=== PATIENT | male | born 1980 | race Caucasian/White ===

== ENCOUNTER 2019-12-17 10:47 | Outpatient (CLI) | payer OTHER, SELFPAY ==
--- NOTE | ~2019-12-17 | XR_ITS ---
EXAMINATION: XR chest 2V DATE: 12/17/2019 11:30 INDICATION: Cough TECHNIQUE: PA and lateral views of the chest were obtained. COMPARISON: Chest radiograph dated 03/11/2018 FINDINGS: The lungs remain clear with no focal airspace opacities, pulmonary edema, pleural effusion or pneumot horax. The cardiomediastinal silhouette is normal. Likely prosthetic disc projects over the C6-C7 dis c space. IMPRESSION: 1. No acute cardiopulmonary disease. Reviewed, dictated and finalized at location A.
--- NOTE | ~2019-12-17 | XR_ITS ---
EXAMINATION: XR sinus min 3V INDICATION: Sinus pressure TECHNIQUE: Five views of the paranasal sinuses are obtained. COMPARISON: 03/11/2018 FINDINGS: The right frontal sinus is mildly hypoplastic. No sinus opacification is identified. Chroni c mild leftward deviation of the nasal septum. The facial bones appear unremarkable. The soft tissues are normal. IMPRESSION: 1. Unremarkable sinuses although sensitivity of radiographs is low. If there is high suspicion for cl inically relevant sinusitis, consider CT. Reviewed, dictated and finalized at location B. IMPRESSION: 1. Unremarkable sinuses although sensitivity of radiographs is low. If there is high suspicion for clinically relevant sinusitis, consider CT.
[2019-12-17 11:14] LABS: Basophils Absolute Auto 0.1 K/mm3 (0.0-0.1); Basophils Percent Auto 0.8 % (0.2-1.2); Eosinophils Absolute Auto 0.1 K/mm3 (0-0.3); Eosinophils Percent Auto 1.7 % (0-4.4); Hematocrit 45.3 % (42.0-52.0); Hemoglobin 14.9 g/dL (14.0-18.0); Immature Granulocyte Absolute 0.03 K/mm3 (0.00-0.031); Immature Granulocyte Percent A 0.4 % (0-0.5); Lymphocytes Absolute Auto 2.66 K/mm3 (0.9-3.2); Lymphocytes Percent Auto 34.7 % (18.3-44.2); Mean Corpuscular HGB Conc 32.9 g/dl (32-36); Mean Corpuscular Hemoglobin 27.9 pg (26-34); Mean Corpuscular Volume 84.8 fl (80-100); Monocytes Absolute Auto 0.8 K/mm3 (0.1-0.6); Monocytes Percent Auto 10.1 % (2.6-8.5); Neutrophils Percent Auto 52.3 % (45.5-73.1); Platelet Count Result 275 k/mm3 (150-375); Red Blood Count 5.34 M/mm3 (4.6-6.20); Red Cell Distribution Width 13.1 % (11.5-14.5); White Blood Count 7.7 K/mm3 (4.5-10.0)
[2019-12-17 11:21] LABS: Influenza Control Positive
== END 2019-12-17 10:48 | disposition home or self-care (01) ==
LOC: ANHLAB 10:50
PROVIDERS: PCP Internal Medicine; Visit Provider Internal Medicine
DX: R05 Cough (principal)
CPT/HCPCS: 70220; 71046; 85025; 87804

== ENCOUNTER 2020-10-09 14:00 | Outpatient (CLI) | payer OTHER, SELFPAY ==
--- NOTE | ~2020-10-09 | XR_ITS ---
EXAMINATION: XR chest 2V DATE: 10/09/2020 14:27 INDICATION: Cough. TECHNIQUE: Frontal and lateral views of the chest were obtained. COMPARISON: Chest 2 views 12/17/2019 FINDINGS: The chest demonstrates clear lungs without pneumonia, pleural effusion, or pneumothorax. Th e heart size is normal. There are changes of disc replacement in cervical spine. IMPRESSION: 1. No acute cardiopulmonary disease. Reviewed, dictated and finalized at location B. 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
== END 2020-10-09 14:01 | disposition home or self-care (01) ==
LOC: ANHIMG 14:06
PROVIDERS: PCP Internal Medicine; Visit Provider Internal Medicine
DX: R05 Cough (principal)
CPT/HCPCS: 71046

== ENCOUNTER 2021-01-18 15:15 | Outpatient (CLI) | payer OTHER, SELFPAY | END 2021-01-18 15:16 | disposition home or self-care (01) | LOC: ANHCOVIDVC 15:15 | PROVIDERS: PCP Internal Medicine | DX: Z23 Encounter for immunization (principal) | CPT/HCPCS: 0001A; 91300 ==

== ENCOUNTER 2021-02-08 15:17 | Outpatient (CLI) | payer OTHER, SELFPAY | END 2021-02-08 15:18 | disposition home or self-care (01) | LOC: ANHCOVIDVC 15:17 | PROVIDERS: PCP Internal Medicine | DX: Z23 Encounter for immunization (principal) | CPT/HCPCS: 0002A; 91300 ==

== ENCOUNTER → 2021-10-17 07:43 | Outpatient (CLI) | payer OTHER, SELFPAY ==
[2021-10-17 19:36] LABS: SARS-CoV-2 RNA PCR Negative
[2021-10-18 10:14] LABS: Influenza A QL RT-PCR Negative (Negative); Influenza B QL RT-PCR Negative (Negative)
== END ==
PROVIDERS: PCP Internal Medicine; Visit Provider Internal Medicine
DX: R05.9 Cough, unspecified (principal); R68.89 Other general symptoms and signs; Z20.822 Contact with and (suspected) exposure to COVID-19
CPT/HCPCS: 87502; C9803; U0003; U0005

== ENCOUNTER 2022-08-23 12:52 | Emergency (ER) | payer OTHER, SELFPAY ==
--- NOTE | ~2022-08-23 | XR_ITS ---
XR foot LT min 3V 08/23/2022 13:27 Indication: Left foot pain after recent fall. Swelling. Procedure: 4 views left foot Comparison: No prior studies for comparison. Findings: There is a transverse nondisplaced fracture proximal aspect of the fifth metatarsal. No oth er fractures. No significant soft tissue abnormality. No foreign bodies. Impression: 1: Transverse nondisplaced fracture proximal aspect of the left fifth metatarsal. Reviewed, dictated and finalized at location A. MAN Impression: 1: Transverse nondisplaced fracture proximal aspect of the left fifth metatarsa l.
[2022-08-23 13:04] VITALS: BP 139/69; PULSE 84; RESP 16; TEMP 36.5; O2SAT 100
--- NOTE | 2022-08-23 14:17 | ED.LOWEXIN ---
HPI - Extremity Injury (Lower) General Chief Complaint: Extremity Injury, Lower Stated Complaint: fell down left foot injury Time Seen by Provider: 08/23/22 14:00 History of Present Illness HPI Narrative: Patient is a 42-year-old male here for evaluation of left foot pain after he fell down the stairs yesterday. Patient states that he tripped on an object the stairs that caused him to fall. Since then he has reported left foot pain and swelling. Has not attempted any medication for pain but has been able to take several steps. No numbness or tingling. He has sensation throughout the foot and is able to move the toes. Related Data Home Medications Medication Instructions Recorded Confirmed bupropion HCl 300 mg 24 hr tablet, 300 mg PO QAM 11/10/19 06/26/22 extended release (Wellbutrin XL) multivitamin 1 tablet PO DAILY 06/25/22 06/26/22 Allergies Allergy/AdvReac Type Severity Reaction Status Date / Time amoxicillin Allergy Unknown Unknown Verified 08/23/22 12:53 cefaclor Allergy Unknown Unknown Verified 08/23/22 12:53 Cephalosporins Allergy Unknown Unknown Verified 08/23/22 12:53 Penicillins Allergy Unknown Unknown Verified 08/23/22 12:53 Review of Systems Review of Systems: Gen: Denies fevers or chills Eyes: Denies eye pain or visual change ENT: Denies congestion Respiratory: Denies shortness of breath or cough CV: Denies chest pain or palpitations GI: Denies abdominal pain nausea, emesis or diarrhea denies burning, urgency, frequency or hematuria Musculoskeletal: Reports left foot pain. Neuro: Denies numbness, tingling, weakness or focal weakness Skin: Denies rash Except as documented, all other systems reviewed and negative [facility] Past Medical History Medical History Abnormal finding of blood chemistry, unspecified Acute suppurative otitis media of right ear Benign essential hypertension BMI 29.0-29.9,adult BMI 32.0-32.9,adult BMI 33.0-33.9,adult BMI 35.0-35.9,adult BMI 36.0-36.9,adult Chronic sinusitis Closed fracture of right hand Cough Depression Elevated glucose Elevated LFTs Encounter for preventive health examination Encounter for routine adult health examination with abnormal findings Flu-like symptoms History of COVID-19 Hyperlipidemia Hypersomnolence Illness Loose stools Lymphadenopathy Neck pain Neoplasm of skin On long 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 care 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 therapy Right upper extremity numbness Right-sided muscle weakness URI (upper respiratory infection) Viral warts Vitamin D deficiency Family History Family History Father Family history of heart disease in male family member before age 55 Social History Social History Smoking status: Never smoker Alcohol intake: current Exam Narrative: Gen: Alert, oriented, no acute disease Eyes: EOMI, no icterus Pulm: Respirations even and unlabored, symmetric thorax expansion, no audible stridor or visible cyanosis CV: Regular rate per telemetry GI: No distension, no voluntary/involuntary guarding Neuro: AOx4, moves all extremities without apparent difficulty or weakness, follows commands CV: triphasic doppler signals to bilateral dp/pt MSK: Swelling over the dorsum of the left foot and point tenderness to the base of the fifth metatarsal. He has a small abrasion that has scabbed over to the dorsal aspect of the 5th toe with no active bleeding. Skin: No jaundice, no visible bruising, rashes, lesions or wounds on exposed skin Psych: Normal mood/affect, insight/judgement good, adequate fund of knowledge, recent/remote memory intact Course Vital Signs Vital signs: Vital Signs Temperature 97.7 F 08/23/22 13:04 Pulse Rate 84 08/23/22 13:04 Respiratory Rate 16 08/23/22 13:04 Blood Pressure 139/69 08/23/22 13:04 Pulse Oximetry 100 08/23/22 13:04 Oxygen Delivery Room Air 12
== END 2022-08-23 15:12 | disposition home or self-care (01) ==
PROVIDERS: Emergency Provider Physician Assistant; PCP Internal Medicine
DX: S92.355A Nondisplaced fracture of fifth metatarsal bone, left foot, initial encounter for closed fracture (principal); I10 Essential (primary) hypertension; E78.5 Hyperlipidemia, unspecified; J32.9 Chronic sinusitis, unspecified; E55.9 Vitamin D deficiency, unspecified; F32.A Depression, unspecified; Z85.828 Personal history of other malignant neoplasm of skin; Z86.16 Personal history of COVID-19; Z79.84 Long term (current) use of oral hypoglycemic drugs; W10.9XXA Fall (on) (from) unspecified stairs and steps, initial encounter
CPT/HCPCS: 29515; 73630; 99284; A9270

== ENCOUNTER 2023-05-12 15:05 | Outpatient (CLI) | payer OTHER, SELFPAY ==
[2023-05-12 18:09] LABS: Basophils Absolute Auto 0.1 K/mm3 (0.0-0.1); Basophils Percent Auto 0.6 % (0.2-1.2); Eosinophils Absolute Auto 0.2 K/mm3 (0-0.3); Eosinophils Percent Auto 1.6 % (0-4.4); Hemoglobin 14.8 g/dL (14.0-18.0); Immature Granulocyte Absolute 0.03 K/mm3 (0.00-0.031); Immature Granulocyte Percent A 0.3 % (0-0.5); Lymphocytes Absolute Auto 2.88 K/mm3 (0.9-3.2); Lymphocytes Percent Auto 27.1 % (18.3-44.2); Mean Corpuscular HGB Conc 32.2 g/dl (32-36); Mean Corpuscular Hemoglobin 27.9 pg (26-34); Mean Corpuscular Volume 86.6 fl (80-100); Mean Platelet Volume 10.1 fl (7.4-10.4); Monocytes Absolute Auto 0.8 K/mm3 (0.1-0.6); Monocytes Percent Auto 7.9 % (2.6-8.5); Neutrophils Absolute Auto 6.6 K/mm3 (1.3-6.7); Neutrophils Percent Auto 62.5 % (45.5-73.1); Platelet Count Result 300 k/mm3 (150-375); Red Blood Count 5.31 M/mm3 (4.6-6.20); Red Cell Distribution Width 13.2 % (11.5-14.5); White Blood Count 10.6 K/mm3 (4.5-10.0)
[2023-05-12 18:28] LABS: Alanine Aminotransferase 94 U/L (6-50); Alkaline Phosphatase 115 U/L (38-126); Anion Gap 9 mmol/L (8-16); Aspartate Amino Transferase 62 U/L (17-59); Bilirubin,Total 0.6 mg/dL (0.2-1.3); Blood Urea Nitrogen 11 mg/dL (9-20); Calcium 9.7 mg/dL (8.4-10.2); Carbon Dioxide 31 mmol/L (22-30); Chloride 100 mmol/L (98-107); Cholesterol 181 mg/dL (0-200); Estimated Glomerular Filt Rate > 60; Glucose 97 mg/dL (65-110); HDL Direct 43 mg/dL; Potassium 4.4 mmol/L (3.4-5.0); Sodium 140 mmol/L (137-145); Triglycerides 167 mg/dL (<150)
[2023-05-12 18:43] LABS: LDL Cholesterol Direct 100 mg/dL
[2023-05-16 17:00] LABS: Testosterone Free 54.3 pg/mL (35.0-155.0); Testosterone Total 396 ng/dL (250-1100)
== END 2023-05-12 15:06 | disposition home or self-care (01) ==
LOC: ANHGOSHLAB 15:06
PROVIDERS: PCP Internal Medicine; Visit Provider Clinical Nurse Specialist
DX: Z13.228 Encounter for screening for other metabolic disorders (principal); I10 Essential (primary) hypertension; E78.5 Hyperlipidemia, unspecified; R73.09 Other abnormal glucose
CPT/HCPCS: 36415; 80053; 80061; 83036; 84402; 84403; 84443; 85025

== ENCOUNTER → 2023-05-16 14:45 | Outpatient (CLI) | payer OTHER, SELFPAY ==
--- NOTE | ~2023-05-16 | US_ITS ---
US right upper quadrant INDICATION: Elevated liver enzymes PROCEDURE: Realtime right upper abdominal ultrasound. COMPARISON: 12/09/2011 FINDINGS: The pancreas is normal without focal mass or pancreatic ductal dilation. Liver echotexture is increased, consistent with fatty infiltration. There is normal directional flow in the portal ve in. The gallbladder is normal without stones, gallbladder wall thickening or pericholecystic fluid. Comm on bile duct measures 4 mm. No sonographic Hill's sign. IMPRESSION: 1: Hepatic steatosis. Reviewed, dictated and finalized at location B. IMPRESSION: 1: Hepatic steatosis.
== END ==
PROVIDERS: PCP Internal Medicine; Visit Provider Clinical Nurse Specialist
DX: R74.01 Elevation of levels of liver transaminase levels (principal); K76.0 Fatty (change of) liver, not elsewhere classified
CPT/HCPCS: 76705

== ENCOUNTER 2024-02-27 08:25 | Outpatient (CLI) | payer OTHER, SELFPAY ==
--- NOTE | ~2024-02-27 | CT_ITS ---
EXAMINATION: CT sinus wo con DATE: 02/27/2024 08:42 INDICATION: Chronic otitis media TECHNIQUE: Computed tomography (CT) of the paranasal sinuses was performed without intravenous contra st. The dose-length product was 428.01 mGy-cm. Automated exposure control and iterative reconstructio n technique were employed. COMPARISON: None FINDINGS: Small mucous retention cyst right maxillary sinus. Mild mucosal thickening of the maxillary , ethmoid and sphenoid sinusitis. There is right mastoid effusion with sclerosis of the temporal bone . There is curvature of the nasal septum with deviation to the right. Ostiomeatal units are patent. IMPRESSION: 1. Mild sinus disease. 2: Right mastoid effusion, likely chronic. Reviewed, dictated and finalized at location B.
== END 2024-02-27 08:26 ==
PROVIDERS: PCP Internal Medicine; Visit Provider Otolaryngology
DX: J32.2 Chronic ethmoidal sinusitis (principal); J32.0 Chronic maxillary sinusitis; J01.01 Acute recurrent maxillary sinusitis; H90.11 Conductive hearing loss, unilateral, right ear, with unrestricted hearing on the contralateral side; H65.491 Other chronic nonsuppurative otitis media, right ear
CPT/HCPCS: 70486

== ENCOUNTER 2024-04-16 08:23 | Outpatient (CLI) | payer OTHER, SELFPAY ==
--- NOTE | 2024-04-16 08:27 | ECG_ITS ---
Test Date: 2024-04-16 08:44:20 Measurements Intervals Herman Rate: 84 P: 49 TX: 166 QRS: 35 QRSD: 125 T: 12 QT: 386 QTc: 458 Interpretive Statements SINUS RHYTHM INTRAVENTRICULAR CONDUCTION DELAY POOR R WAVE PROGRESSION BORDERLINE T WAVE ABNORMALITY- INFERIOR LEADS BORDERLINE ECG No previous ECG available for comparison Electronically Signed On 04-16-2024 08:53:04 CDT by Henry Araiza D.O.
[2024-04-16 09:25] LABS: Anion Gap 11 mmol/L (4-12); Blood Urea Nitrogen 16 mg/dL (9-20); Calcium 9.3 mg/dL (8.4-10.2); Carbon Dioxide 27 mmol/L (22-30); Chloride 103 mmol/L (98-107); Estimated Glomerular Filt Rate > 60; Glucose 117 mg/dL (65-110); Sodium 141 mmol/L (137-145)
== END 2024-04-16 08:24 | disposition home or self-care (01) ==
PROVIDERS: Anesthesiology; PCP Internal Medicine; Visit Provider Otolaryngology
DX: Z01.810 Encounter for preprocedural cardiovascular examination (principal); Z01.812 Encounter for preprocedural laboratory examination; I10 Essential (primary) hypertension; Z79.899 Other long term (current) drug therapy; I45.9 Conduction disorder, unspecified
CPT/HCPCS: 36415; 80048; 93005

== ENCOUNTER 2024-04-20 00:01 | Day surgery (SDC) | payer OTHER, SELFPAY ==
[2024-04-14 09:34] VITALS: BMI 35.6
--- NOTE | 2024-04-14 09:53 | SUR.PREOP ---
Report to the Outpatient Waiting Room, entrance under the green pavilion located off [facility], at time 0930 on date 04/20/24. Planned Procedure Time: 1130. Time changes happen often and if your time is changed the preop area will call you the afternoon before. - You and your visitor will be asked to self-screen and do not enter if you have any COVID symptoms. - A mask is optional within the hospital at this time. Patients may have clear liquids (water, carbonated beverages, clear teas, apple juice) until 3 hours prior to surgery with a maximum of 20 ounces. - No food from midnight until time of surgery Take the following medications with a SIP of water the morning of surgery: ALPRAZOLAM, BUPROPRION DO NOT STOP ANY OF YOUR OTHER PRESCRIPTION MEDICATIONS PRIOR TO SURGERY ?EXCEPT THE FOLLOWING Medications to discontinue per physician STOP ALL VITAMINS AND SUPPLIMENTS 3 DAYS PRIOR TO PROCEDURE Date to take last dose 04/16/24 Please no make-up, nail kosovan, hairspray, perfume, deodorant, or body powder the day of surgery. No jewelry (including any body piercings) or valuables the day of surgery, leave them at home. Please take a shower or bath the night before, or the morning of, surgery with an antibacterial soap. Wear comfortable, loose fitting clothing. Children are encouraged to wear pajamas. - Jewelry must be removed prior to entering the operating room. Rings and piercings that are not removed may be cut off. - The hospital will not accept responsibility for valuables. - Please leave all valuables, including medications, at home the day of surgery. If you are going home after surgery, a licensed helper/driver must drive you home. - NO public transportation without another adult if you receive anesthesia. - We recommend that an adult stay with you for 24 hours following discharge. - We also recommend that you do not drive, make important decision, drink alcoholic beverages, or take any drugs that were not prescribed by your health care provider for at least 24 hours after your discharge time. Follow any additional instructions given to you from your surgeon. If you or anyone in your household have experienced Covid symptoms in the past week, please notify your surgeon or the nurse liaison at the phone number below for possible testing. Telephone instructions given to TAD KAY and asked if any additional questions and then verbalized understanding. Patient advised to call surgeon office or pre surgery nurse liaison [phone] if any additional questions.
--- NOTE | 2024-04-19 11:01 | PM.IMHP ---
H&P: HPI History of Present Illness Date/Time: 04/19/24 11:01 Chief Complaint: nasal obstruction nasal congestion septal deviation turbinate hypertrophy Narrative: planned procedure Review of Systems Review of Systems: All systems reviewed & are unremarkable except as noted in HPI and below [facility] Past Medical History Medical History Abnormal finding of blood chemistry, unspecified Acute suppurative otitis media of right ear Benign essential hypertension BMI 29.0-29.9,adult BMI 32.0-32.9,adult BMI 33.0-33.9,adult BMI 35.0-35.9,adult BMI 36.0-36.9,adult Chronic sinusitis Closed fracture of right hand Cough Depression Diarrhea Elevated glucose Elevated LFTs Encounter for preventive health examination Encounter for routine adult health examination with abnormal findings Flu-like symptoms Fracture of base of fifth metatarsal bone of left foot History of COVID-19 Hyperlipidemia Hypersomnolence Illness Loose stools Lymphadenopathy Neck pain Neoplasm of skin On buttermaker drug therapy Right upper extremity numbness Right-sided muscle weakness Seborrheic keratosis Skin tag URI (upper respiratory infection) Viral warts Vitamin D deficiency Surgical History Surgical History History of arthroscopy of left knee History of hand surgery History of neck surgery Family History Family History Father Family history of heart disease in male family member before age 55 Social History Social History Social History: Caffeine-occasionally Smoking status: Never smoker Alcohol intake: former Substance use: never Substance use type: does not use Lack of Transportation: No Lack of Food: Never True Current Housing: I Have Housing Concerned About Future Housing: No Difficulty Paying Gas/Electric Bills: No Currently Unemployed: No Education: Associate Degree Difficulty w/ Childcare or Family Care: No Living arrangements: with friend(s) Occupation/Education: occupation 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 Gender identity (if verbalized by the patient): Male Spiritual care concerns: No Meds Home Medications and Allergies Home Medications Medication Instructions Recorded Confirmed Type alprazolam 0.5 mg tablet 0.5 mg PO BID PRN anxiety #60 tabs 05/15/22 04/14/24 Rx multivitamin 1 tablet PO DAILY 06/25/22 04/14/24 History bupropion HCl 300 mg 24 hr tablet, 300 mg PO QAM 05/12/23 04/14/24 History extended release (Wellbutrin XL) albuterol sulfate 90 mcg/actuation 1 puff inhalation Q4H PRN 07/09/23 04/14/24 Rx aerosol inhaler shortness of breath or wheezing #8.5 grams hydrochlorothiazide 12.5 mg tablet 12.5 mg PO DAILY #90 tabs 02/24/24 04/14/24 Rx omeprazole 20 mg capsule,delayed 20 mg PO DAILY #30 caps 03/05/24 04/14/24 Rx release atorvastatin 40 mg tablet 40 mg PO DAILY #90 tabs 03/26/24 04/14/24 Rx losartan 100 mg tablet 100 mg PO DAILY #90 tabs 03/26/24 04/14/24 Rx Allergies Allergy/AdvReac Type Severity Reaction Status Date / Time amoxicillin Allergy Unknown Unknown Verified 03/05/24 14:53 cefaclor Allergy Unknown Unknown Verified 03/05/24 14:53 Cephalosporins Allergy Unknown Unknown Verified 03/05/24 14:53 Penicillins Allergy Unknown Unknown Verified 03/05/24 14:53 hydrocodone [From Vicodin] AdvReac Other Verified 04/14/24 09:37 Exam Narrative: a septal deviation turbinate hypertrophy Assessment and Plan Assessment and plan (1) Nasal congestion: Code(s): R09.81 - Nasal congestion Status: Acute Assessment and Plan: OR for endoscopic assisted septoplasty inferior turbinate reduction with outfracture. Risks were discussed bleeding infection and . Damage to surrounding structures.
[2024-04-20] VITALS (8 sets, daily range): BP systolic 113–143; BP diastolic 63–91; PULSE 96–107; RESP 10–20; TEMP 36.2–36.8; O2SAT 92–100
--- NOTE | 2024-04-20 07:13 | WPDHPUPDATE1 ---
History and Physical Update Update Date/Time: 04/20/24 07:13 History and Physical has been reviewed, including an updated exam of the patient. There are NO changes in the patient's condition. Risks, benefits, and alternatives have been discussed and questions answered. Patient agrees to proceed with procedure.
--- NOTE | 2024-04-20 10:00 | WPDANESEPPF ---
Anes - Initial Pre Proc Eval Procedure: Operation Date: 04/20/24 11:30 Proposed Procedures p Endoscopic Septoplasty - Kali Huerta MD s Bilateral Inferior Turbinate Reduction with Outfracture - Kali Huerta MD Date/Time: 04/20/24 10:00 Surgeon: Kali Huerta MD Pre Op Diagnosis: septal deviation, turbinate hypertrophy Patient Data Age: 44 Gender: M Height: 1.85 m Weight: 122.44 kg Allergies Allergy/AdvReac Type Severity Reaction Status Date / Time amoxicillin Allergy Unknown Unknown Verified 04/20/24 10:35 cefaclor Allergy Unknown Unknown Verified 04/20/24 10:35 Cephalosporins Allergy Unknown Unknown Verified 04/20/24 10:35 Penicillins Allergy Unknown Unknown Verified 04/20/24 10:35 hydrocodone [From Vicodin] AdvReac Other Verified 04/20/24 10:35 Home Medications Medication Instructions Recorded Confirmed Type alprazolam 0.5 mg tablet 0.5 mg PO BID PRN anxiety #60 tabs 05/15/22 04/14/24 Rx multivitamin 1 tablet PO DAILY 06/25/22 04/14/24 History bupropion HCl 300 mg 24 hr tablet, 300 mg PO QAM 05/12/23 04/20/24 History extended release (Wellbutrin XL) albuterol sulfate 90 mcg/actuation 1 puff inhalation Q4H PRN 07/09/23 04/14/24 Rx aerosol inhaler shortness of breath or wheezing #8.5 grams hydrochlorothiazide 12.5 mg tablet 12.5 mg PO DAILY #90 tabs 02/24/24 04/14/24 Rx omeprazole 20 mg capsule,delayed 20 mg PO DAILY #30 caps 03/05/24 04/14/24 Rx release atorvastatin 40 mg tablet 40 mg PO DAILY #90 tabs 03/26/24 04/14/24 Rx losartan 100 mg tablet 100 mg PO DAILY #90 tabs 03/26/24 04/14/24 Rx Patient hx anesthesia problems: none Family hx anesthesia problems: none Results Review: All pre-operative results and documents have been reviewed as part of the pre-operative evaluation. [facility] Past Medical History Medical History (Updated 04/20/24 @ 10:01 by Niles Waldrop DO) Abnormal finding of blood chemistry, unspecified Acute suppurative otitis media of right ear Asthma Benign essential hypertension BMI 29.0-29.9,adult BMI 32.0-32.9,adult BMI 33.0-33.9,adult BMI 35.0-35.9,adult BMI 36.0-36.9,adult Chronic sinusitis Closed fracture of right hand Cough Depression Diarrhea Elevated glucose Elevated LFTs Encounter for preventive health examination Encounter for routine adult health examination with abnormal findings Flu-like symptoms Fracture of base of fifth metatarsal bone of left foot History of COVID-19 Hyperlipidemia Hypersomnolence Hypertension Illness Loose stools Lymphadenopathy Neck pain Neoplasm of skin On fpc drug therapy Right upper extremity numbness Right-sided muscle weakness Seborrheic keratosis Skin tag URI (upper respiratory infection) Viral warts Vitamin D deficiency Surgical History Surgical History History of arthroscopy of left knee History of hand surgery History of neck surgery Family History Family History Father Family history of heart disease in male family member before age 55 Social History Social History Social History: Caffeine-occasionally Smoking status: Never smoker Alcohol intake: former Substance use: never Substance use type: does not use Lack of Transportation: No Lack of Food: Never True Current Housing: I Have Housing Concerned About Future Housing: No Difficulty Paying Gas/Electric Bills: No Currently Unemployed: No Education: Associate Degree Difficulty w/ Childcare or Family Care: No Living arrangements: with friend(s) Occupation/Education: occupation 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
[2024-04-20] MEDS: ACETAMINOPHEN 500 MG TABLET 1000 MG PO (10:15)
[2024-04-20] MEDS: LACTATED RINGERS 1,000 ML 30 ML IV CONT (10:15)
[2024-04-20] MEDS: CLINDAMYCIN 900 MG/D5W 50 ML 900 MG/50 ML PIGGYBACK 50 MG IVPB (11:10)
[2024-04-20] MEDS: LIDO 1%/EPINEPHRINE 1:100,000 20 ML VIAL 5 ML INFILTRATE (11:35)
[2024-04-20] MEDS: OXYMETAZOLINE HCL 0.05% NAS 15 ML BTL (*BKC) 1 SPRAY NASAL (11:35)
[2024-04-20] MEDS: HEMOSTATIC MATRIX (SURGIFLO with THROMBIN) KIT 1 KIT XX (12:13)
[2024-04-20] MEDS: MUPIROCIN 2% OINT 22 GM TUBE 1 APPLIC EACH NARE (12:27)
[2024-04-20] MEDS: oxyCODONE HCL (*CRX) 5 MG TAB IR PO (14:00)
--- NOTE | 2024-04-20 14:27 | W.PM.PROC2 ---
Procedure Note - Detailed Date of Procedure 04/20/24 Pre-op Diagnosis septal deviation, turbinate hypertrophy, nasal obstruction Post-op Diagnosis Same Procedure Performed endoscopic assisted septoplasty, bilateral inferior turbinate reduction with outfracture Surgeon Kali Huerta MD Anesthesia General Indications see above Findings severely deviated leftward septum large turbinates well reduced Description of Procedure patient identified consent verified preop. Patient brought operating. Time-out performed. General anesthesia induced endotracheal tube secured. Patient prepped draped position procedure confirmed 2nd time-out performed. Afrin-soaked pledgets placed for 5 minutes then removed. 0 degree endoscope utilized total 17 cc 1% lidocaine 1 100,000 parts epinephrine checked in bilateral nasal septum and inferior turbinates. Rupert incision made left-sided left nasal septal flap elevated small tears over the spur osteotome utilized to cross to the septum. Right nasal septal side nasal septal flap elevated small tears over a right-sided spur none opposing the left side. Deviated septum removed osteotome Abilio Vivas forceps Marium forceps. Septum washed out FloSeal placed. Any bleeding he turbinates stab with 15 blade anteriorly reduced in the submucosal plane using microdebrider with 2.5 mm [place] blade outfractured [place] elevator FloSeal placed here as well. Total blood loss 20 cc. [place] incision closed with 3 interrupted 5 0 fast gut sutures. Maldonado splints placed sutured into using 3-0 mattress nylon suture. I performed all dictated portions procedure no complications care the patient given Anesthesiology patient taken to PACU. Estimated Blood Loss 20 Drains No Packing No Pathology None sent Complications No immediate complications Condition Stable Disposition PACU [facility] Billing Surgery - Charge Forward: Surgery Billing
== END 2024-04-20 14:45 | disposition home or self-care (01) ==
PROVIDERS: PCP Internal Medicine; Visit Provider Otolaryngology
PROC: (CPT 30520; principal; 2024-04-20 11:30)
PROC: (CPT 30520; 2024-04-20 11:30)
DX: J34.2 Deviated nasal septum (principal); J34.3 Hypertrophy of nasal turbinates; J34.89 Other specified disorders of nose and nasal sinuses; I10 Essential (primary) hypertension; E78.5 Hyperlipidemia, unspecified; J45.909 Unspecified asthma, uncomplicated; F32.A Depression, unspecified; Z79.51 Long term (current) use of inhaled steroids; E66.9 Obesity, unspecified; Z68.37 Body mass index [BMI] 37.0-37.9, adult
CPT/HCPCS: 30520; 30140; 36415; 80048; 93005; A9270; J0330; J1100; J2250; J2405; J2704; J3010; J7120

== ENCOUNTER 2024-09-09 09:16 | Outpatient (CLI) | payer OTHER, SELFPAY ==
[2024-09-09 12:35] LABS: Basophils Absolute Auto 0.1 K/mm3 (0.0-0.1); Eosinophils Absolute Auto 0.3 K/mm3 (0-0.3); Eosinophils Percent Auto 2.5 % (0-4.4); Hematocrit 46.1 % (42.0-52.0); Hemoglobin 14.8 g/dL (14.0-18.0); Immature Granulocyte Absolute 0.08 K/mm3 (0.00-0.031); Immature Granulocyte Percent A 0.8 % (0-0.5); Lymphocytes Absolute Auto 2.66 K/mm3 (0.9-3.2); Lymphocytes Percent Auto 26.3 % (18.3-44.2); Mean Corpuscular HGB Conc 32.1 g/dl (32-36); Mean Corpuscular Hemoglobin 27.9 pg (26-34); Mean Platelet Volume 9.8 fl (7.4-10.4); Monocytes Absolute Auto 0.8 K/mm3 (0.1-0.6); Monocytes Percent Auto 7.7 % (2.6-8.5); Neutrophils Absolute Auto 6.2 K/mm3 (1.3-6.7); Neutrophils Percent Auto 61.7 % (45.5-73.1); Platelet Count Result 268 k/mm3 (150-375); Red Cell Distribution Width 13.8 % (11.5-14.5); White Blood Count 10.1 K/mm3 (4.5-10.0)
[2024-09-09 13:10] LABS: Alanine Aminotransferase 83 U/L (6-50); Albumin Level 4.5 g/dL (3.5-5.1); Alkaline Phosphatase 92 U/L (38-126); Anion Gap 6 mmol/L (4-12); Aspartate Amino Transferase 91 U/L (17-59); Bilirubin,Total 0.5 mg/dL (0.2-1.3); Blood Urea Nitrogen 17 mg/dL (9-20); Calcium 9.6 mg/dL (8.4-10.2); Carbon Dioxide 30 mmol/L (22-30); Chloride 105 mmol/L (98-107); Cholesterol 180 mg/dL (0-200); Estimated Glomerular Filt Rate > 60; Glucose 103 mg/dL (65-110); HDL Direct 38 mg/dL; Potassium 4.3 mmol/L (3.4-5.0); Sodium 141 mmol/L (137-145); Triglycerides 167 mg/dL (<150)
[2024-09-09 13:15] LABS: Iron 90 ug/dL (49-181)
[2024-09-09 13:21] LABS: LDL Cholesterol Direct 105 mg/dL
[2024-09-09 13:28] LABS: Hepatitis B Surface Antigen Negative (Negative); Percent Iron Saturation 21 % (20-50)
[2024-09-09 13:45] LABS: Hepatitis C Virus Antibody Negative (Negative)
[2024-09-09 13:52] LABS: HIV 1/2 Ab P24 Ag Result Negative (Negative)
[2024-09-09 13:56] LABS: Creatinine Urine 132.9 mg/dL
[2024-09-09 14:00] LABS: MALB Creatinine Ratio 14.4 mg/g (0-30); Microalbumin Urine Random 19.2 mg/L (0-16.7)
[2024-09-09 16:02] LABS: Hemoglobin A1C 6.3 % (<5.7)
== END 2024-09-09 09:17 | disposition home or self-care (01) ==
LOC: ANHGOSHLAB 09:17
PROVIDERS: PCP Internal Medicine; Visit Provider Clinical Nurse Specialist
DX: R74.01 Elevation of levels of liver transaminase levels (principal); R53.83 Other fatigue; I10 Essential (primary) hypertension; F41.9 Anxiety disorder, unspecified; E78.2 Mixed hyperlipidemia; E66.9 Obesity, unspecified; Z68.38 Body mass index [BMI] 38.0-38.9, adult; R74.8 Abnormal levels of other serum enzymes; R73.9 Hyperglycemia, unspecified
CPT/HCPCS: 36415; 80053; 80061; 82043; 82728; 83036; 83540; 83550; 84443; 85025; 86703; 86803; 87340; G0432

== ENCOUNTER 2024-12-10 10:51 | Outpatient (CLI) | payer OTHER, SELFPAY ==
--- NOTE | ~2024-12-10 | XR_ITS ---
Clinical Indication: Chronic cough PA and lateral views of the chest: Comparison: 10/09/2020 Findings: The lungs are clear, without evidence of focal consolidation or pleural effusion. Cardiome diastinal silhouette is within normal limits. Bones and soft tissues are unremarkable. Impression: Normal chest. Reviewed, dictated and finalized at location . Impression: Normal chest.
== END 2024-12-10 10:52 | disposition home or self-care (01) ==
PROVIDERS: PCP Internal Medicine
DX: R05.3 Chronic cough (principal)
CPT/HCPCS: 71046